=== PATIENT | female | born 2005 | race Caucasian/White ===

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

== ENCOUNTER 2024-02-25 13:43 | Outpatient (AMB) | payer OTHER, SELFPAY ==
--- NOTE | 2024-02-25 13:57 | AM.OFFWIN_ITS ---
Intake Vital Signs 02/25/24 13:59 Height 5 ft 9 in Weight 211 lb BMI 31.2 BP 112/80 Blood Pressure Location Lt brachial Position Sitting Pulse 94 Pulse Source Pulse Oximeter Temp 99.3 F Temp Source Oral Pulse Oximetry (%) 98 Oxygen Delivery Method Room Air Intake Visit Reasons: EP Dog bite Intake Note: Pt c/o dog bite. 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 L lateral thigh + 10/10 pain with palpation + 3 puncture wounds which were actively bleeding yesterday + bruised today Took OTC medicine for pain No fevers She is UTD with tetanus Pt washed area there after incident occured and applied a bandage [facility] Social History Household Members: Family Household Members Other:: mother Both parents involved: No Housing: Apartment Are you a primary career transition specialist to a significant other at home: No Do you presently have visiting nurse or other home services: No 75 years or older and lives alone: No Patient Tobacco Use Status: Current someday Tobacco user Female Reproductive History Menstrual Age of Menarche: 10 Review of Systems Const Denies chills and Denies fever(s) Musc Reports deformity, Reports radiating pain into limb (with certain movements L leg) and Denies tingling Skin/Breast Reports skin pain and Reports wounds Neuro Denies tingling Physical Exam Vital Signs: Last Vital Signs Temp 99.3 F 02/25/24 13:59 Pulse 94 02/25/24 13:59 BP 112/80 02/25/24 13:59 Pulse Ox 98 02/25/24 13:59 Oxygen Delivery Method Room Air 02/25/24 13:59 BMI result Body Mass Index 31.2 General: Non-toxic, NAD. Speaking full sentences. Skin: Warm dry throughout. L lateral mid thigh + 3 puncture wounds which are approximated and not open. + minimal erythema without warmth. No induration to palpation but + associated ecchymosis. + tender to palpation Eye: EOMI Respiratory: No respiratory distress MSK: Full ROM extremities. Neurology: A/O. No aphasia or facial droop. Gait without abnormality Psych: Good mood and affect Assessment & Plan Assessment & Plan (1) Dog bite of lower leg: Code(s): S81.859A - Open bite, unspecified lower leg, initial encounter; W54.0XXA - Bitten by dog, initial encounter Qualifiers: Encounter type: initial encounter Laterality: left Qualified Code(s): S81.852A - Open bite, left lower leg, initial encounter; W54.0XXA - Bitten by dog, initial encounter Plan: Patient seen and evaluated. Cold compress, ibuprofen/tylenol Can use heat if hematoma forms Augmentin F/U with PCP Patient gave verbal understanding and had no additional questions or concerns at time of discharge All questions answered Medications: New amoxicillin-pot clavulanate 875-125 mg 1 tab PO BID 14 tabs 0RF Coding Level of Care Code Est Pt Level 3 (56919) Diagnoses Dog bite of left lower leg, initial encounter S81.852A; W54.0XXA Encounter type: initial encounter Laterality: left
[2024-02-25 13:59] VITALS: BP 112/80; PULSE 94; TEMP 37.4; O2SAT 98; BMI 31.2
== END 2024-02-25 14:18 | disposition home or self-care (01) ==
PROVIDERS: PCP Pediatrics; Visit Provider Physician Assistant
DX: S81.852A Open bite, left lower leg, initial encounter (principal); W54.0XXA Bitten by dog, initial encounter
CPT/HCPCS: 99213

== ENCOUNTER 2025-05-20 11:03 | Outpatient (REF) | payer OTHER, SELFPAY ==
[2025-05-20 15:08] LABS: Bacterial Vaginosis PCR POSITIVE (Negative); Candida Group PCR DETECTED (Not Detect); Candida glab krusei PCR NOT DETECTED (Not Detect); Trichomonas vaginalis PCR NOT DETECTED (Not Detect)
[2025-05-20 15:39] LABS: CT PCR NOT DETECTED (Not Detect.); NG PCR NOT DETECTED (Not Detect.)
== END 2025-05-20 11:04 | disposition home or self-care (01) ==
LOC: HO.LNP 11:03
PROVIDERS: PCP Pediatrics; Visit Provider Advanced Practice Midwife
DX: Z30.09 Encounter for other general counseling and advice on contraception (principal); Z20.2 Contact with and (suspected) exposure to infections with a predominantly sexual mode of transmission; E66.812 Obesity, class 2; B37.31 Acute candidiasis of vulva and vagina; N89.8 Other specified noninflammatory disorders of vagina; Z97.5 Presence of (intrauterine) contraceptive device; Z87.42 Personal history of other diseases of the female genital tract; Z68.36 Body mass index [BMI] 36.0-36.9, adult
CPT/HCPCS: 81515; 87491; 87591

== ENCOUNTER 2025-05-20 11:03 | Outpatient (AMB) | payer OTHER, SELFPAY ==
--- NOTE | 2025-05-20 11:16 | A.OFFVIS_ITS ---
Vital Signs 05/20/25 11:20 Height 5 ft 9 in Weight 250 lb BMI 36.9 BP 118/70 Intake Visit Reasons: std testing Intake Note: Patient here for STD screen Surface Water Technician Required: No Information Interpreted: non-clinical & clinical Die Try Out Worker Stamping: Die Try Out Worker Stamping Present (Elen MARTINEZ) Accompanied by: Self / Same As Patient Allergies No Known Allergies Allergy (Verified 05/20/25 11:21) Medication List - Last Reconciled 05/20/25 by Delaney Schmidt CNM levonorgestrel (Kyleena) intrauterine Is last menstrual period known: Yes Last menstrual period: 04/28/25 HPI HPI std testing: Details: Patient is here for an STD check which was recommended because she had called with yeast symptoms however there was also ever reported greenish discharge so she agreed to come for STD screening to evaluate this just to be sure. She has a Kyleena IUD which I placed some years ago she had been on control she has a history of previous menstrual concerns and this turned out to be a very good solution for her. Most of the recent (last year and a half) episodes of yeast infection were related to use of antibiotics for strep throat dog bite and dental infections. She also self-treated for BV with boric acid on occasion as well. She lives with her mother and her mother buys the food and does the cooking. Money is tight so they do eat a lot of processed foods as they are often cheaper. Her circulation tender is Dr. Rae Balderas, but she admits she has not seen her in a while and now that she is 20 she has probably aging out of the pediatric population and needs to find a new care provider. She has always tended to be overweight and so much of this visit was spent discussing learning about nutrition and making healthier choices both to eventually lose weight and become healthier and also to have an awareness of sugar and carbs in ones diet and concerns about risk of diabetes as she is overweight. And also in connection to the recurrent yeast she has been doing some reading herself so different suggestions were made on how to make healthier choices going forward as she is now 20. Additionally extensive discussion about yeast treatment and prevention with cotton underwear air to vulva avoidance of sugar etc. occurred. [facility] Social History Household Members: Family Household Members Other:: mother Both parents involved: No Housing: Apartment Are you a primary director of medicare to a significant other at home: No Do you presently have visiting nurse or other home services: No 75 years or older and lives alone: No Patient Tobacco Use Status: Current someday Tobacco user Female Reproductive History Menstrual Age of Menarche: 10 Date of last menstrual period: 04/28/25 control method: progestin IUCD Physical Exam Vital Signs: Last Vital Signs BP 118/70 05/20/25 11:20 BMI result Body Mass Index 36.9 Other: External exam is within normal limits vagina is pink and moist with a uniform homogeneous whitish discharge which is somewhat clinging to the mucosal membrane consistent with bacterial vaginosis but which could have a yeast component as well her cervix is nulliparous pink smooth healthy appearing with Kyleena string easily visible. We will await testing results to determine treatment options full treatment options were discussed is part of the education done through this visit. Assessment & Plan Assessment & Plan (1) Presence of 13.5 mg levonorgestrel-releasing intrauterine device (IUD): Comment: Note patient actually has a Kyleena which has 19.5 mg levonorgestrel --which is not an option in system Code(s): Z97.5 - Presence of (intrauterine) contraceptive device Category: Social Hx (2) History of irregular menstrual bleeding: Code(s): Z87.42 - Personal history of other diseases of the female genital tract Category: Medical (3) Encounter for screening examination for sexually transmitted disease: Code(s): Z11.3 - Encounter for screening for infections with a predominantly sexual mode of transmission Category: Medical (4) Problematic vaginal discharge: Code(s): N89.8 - Other specified noninflammatory disorders of vagina Category: Medical (5) control counseling: Code(s): Z30.09 - Encounter for other general counseling and advice on contraception Category: Medical (6) Obesity, Class II, BMI 35-39.9: Code(s): E66.812 - Obesity, class 2 Category: Medical (7) Recurrent candidiasis of vagina: Comment: Recent occurrences in last year and a half mostly related to antibiotic use for strep throat and dental infections etc. extensive teaching done about diet sugar carbs weight risk of diabetes etc.. Patient will be looking for a new PCC as she ages out of pediatric care. Code(s): B37.31 - Acute candidiasis of vulva and vagina Category: Medical Plan Patient is here for an STD check which was recommended because she had called with yeast symptoms however there was also ever reported greenish discharge so she agreed to come for STD screening to evaluate this just to be sure. She has a Kyleena IUD which I placed some years ago she had been on control she has a history of previous menstrual concerns and this turned out to be a very good solution for her. Most of the recent (last year and a half) episodes of yeast infection were related to use of antibiotics for strep throat dog bite and dental infections. She also self-treated for BV with boric acid on occasion as well. She lives with her mother and her mother buys the food and does the cooking. Money is tight so they do eat a lot of processed foods as they are often cheaper. Her circulation tender is Dr. Rae Balderas but she admits she has not seen her in a while and now that she is 20 she has probably aging out of the pediatric population and needs to find a new care provider. She has always tended to be overweight and so much of this visit was spent discussing learning about nutrition and making healthier choices both to eventually lose weight and become healthier and also to have an awareness of sugar and carbs in ones diet and concerns about risk of diabetes as she is overweight. And also in connection to the recurrent yeast she has been doing some reading herself so different suggestions were made on how to make healthier choices going forward as she is now 20. Additionally extensive discussion about yeast treatment and prevention with cotton underwear air to vulva avoidance of sugar etc. occurred. Also the are hormonal shifts because of long-term use of control method though that also is serving her. Discussed scheduling her annual exam and 1st Pap smear and discussing who she may want for her primary care provider and choosing and scheduling. Orders: Orders Bacterial Vaginosis Panel Today Z11.3 - Encounter for screening for infections with a predominantly sexual mode of transmission CT NG by PCR Vag/Cerv Today Z11.3 - Encounter for screening for infections with a predominantly sexual mode of transmission Coding Level of Care Code Est Pt Level 3 (64767) Diagnoses Presence of 13.5 mg levonorgestrel-releasing intrauterine device (IUD) Z97.5 History of irregular menstrual bleeding Z87.42 Encounter for screening examination for sexually transmitted disease Z11.3 Problematic vaginal discharge N89.8 control counseling Z30.09 Obesity, Class II, BMI 35-39.9 E66.812 Recurrent candidiasis of vagina B37.31
[2025-05-20 11:20] VITALS: BP 118/70; BMI 36.9
== END 2025-05-20 12:34 | disposition home or self-care (01) ==
LOC: HO.HWS 11:03
PROVIDERS: PCP Pediatrics; Visit Provider Advanced Practice Midwife
DX: Z97.5 Presence of (intrauterine) contraceptive device (principal); Z87.42 Personal history of other diseases of the female genital tract; Z11.3 Encounter for screening for infections with a predominantly sexual mode of transmission; N89.8 Other specified noninflammatory disorders of vagina; Z30.09 Encounter for other general counseling and advice on contraception; E66.812 Obesity, class 2; B37.31 Acute candidiasis of vulva and vagina
CPT/HCPCS: 99213

== ENCOUNTER 2025-06-23 14:35 | Outpatient (REF) | payer OTHER, SELFPAY ==
[2025-06-24 00:47] LABS: Bacterial Vaginosis PCR POSITIVE (Negative); Candida Group PCR DETECTED (Not Detect); Candida glab krusei PCR NOT DETECTED (Not Detect); Trichomonas vaginalis PCR NOT DETECTED (Not Detect)
== END 2025-06-23 14:36 | disposition home or self-care (01) ==
LOC: HO.LNP 14:35
PROVIDERS: PCP Pediatrics; Visit Provider Advanced Practice Midwife
DX: N76.1 Subacute and chronic vaginitis (principal); Z32.02 Encounter for pregnancy test, result negative; Z20.2 Contact with and (suspected) exposure to infections with a predominantly sexual mode of transmission
CPT/HCPCS: 81025; 81515

== ENCOUNTER 2025-06-23 14:35 | Outpatient (AMB) | payer OTHER, SELFPAY ==
--- NOTE | 2025-06-23 14:38 | MHC.OFFVIS ---
Vital Signs 06/23/25 14:49 Height 5 ft 10 in Weight 217 lb BMI 31.1 BP 112/74 Blood Pressure Location Rt brachial Position Sitting Intake Visit Reasons: vaginal infection Intake Note: Recurring yeast infection after every treatment of antibiotics. Today having vaginal itching. Chrome Worker Required: No Information Interpreted: non-clinical & clinical Electronic Scanner Operator: Electronic Scanner Operator Present (Amelia) Accompanied by: Self / Same As Patient Allergies No Known Allergies Allergy (Verified 06/23/25 14:45) Medication List - Last Reconciled 06/23/25 by Stella Lyon LPN levonorgestrel (Kyleena) intrauterine Is last menstrual period known: Yes Last menstrual period: 05/28/25 Do you need a note to return to daycare/school/sports/work: No HPI Comments Details: Patient is here today with concerns that she has chronic yeast infections since being treated with multiple rounds of antibiotics. Recently tried Diflucan and had repeated doses. Currently has severe itching externally w/small cuts, and cottage cheese discharge. Kyleena IUD user. Last GC chlamydia 05/20/2025 were negative, patient declines any pelvic pain or risk exposure. She has felt irritated with a taut sensation and dryness after using some topical creams. [facility] Medical History Depression IUD (intrauterine device) in place Social History Household Members: Family Household Members Other:: mother Both parents involved: No Housing: Apartment Are you a primary director of medicare to a significant other at home: No Do you presently have visiting nurse or other home services: No 75 years or older and lives alone: No Patient Tobacco Use Status: Current someday Tobacco user Female Reproductive History Menstrual Age of Menarche: 10 Date of last menstrual period: 05/28/25 control method: progestin IUCD Review of Systems Const All systems reviewed & are unremarkable except as noted in HPI and below Physical Exam Vital Signs: Last Vital Signs BP 112/74 06/23/25 14:49 BMI result Body Mass Index 31.1 Const General: cooperative, healthy appearing and no acute distress Orientation/consciousness: patient oriented x3 GI Inspection: Yes normal to inspection Palpation (GI): Soft to palpation and Other GI palpation findings present (Nontender) Rectal Exam - Female: visual inspection normal General: Yes bladder normal to palpation External Female Exam: normal appearance of the urethra and erythema (No fissures, lesions or excoriations ) Speculum Exam - Vagina: normal appearance of the vagina, normal palpation and abnormal vaginal discharge (Curdy) white Speculum Exam - Cervix: normal appearance of the cervix and normal palpation Bimanual exam- vagina & uterus: normal bimanual exam, normal palpation, uterine size normal, bladder normal to palpation, normal palpation, uterine shape normal and non-tender Bimanual Exam- Adnexa, other: normal adnexae Neuro General: patient oriented x3 Results AMB Test Urine AMB Test Urine Negative Last Edit by Stella Lyon LPN on 06/23/25 14:56 Results Reviewed Results Reviewed: Laboratory Last Values Tst Clinic Negative 06/23/25 14:52 Assessment & Plan Assessment & Plan (1) Chronic vaginitis: Code(s): N76.1 - Subacute and chronic vaginitis Plan: Discussed the role of women's probiotics, gut biome, promotion of healthy diet, limiting sugar. Use of the Internet web page with descriptions of products available reviewed. The patient expressed understanding and agreement with the plan of care. All of her questions and concerns were addressed to the best of my ability. Plan Instructions: Clean with warm water, no soaps, scented products. Use a cool cloth to the area several times a day if swollen and/or uncomfortable. Complete all medications as prescribed. Await final pending results for any changes in the plan of care. Call the office if there is no improvement in 24-48hrs., or if worsening symptoms. The patient expressed understanding and agreement with the plan of care. All of her questions and concerns were addressed to the best of my ability. This note is constructed using voice recognition software. While every effort has been made to ensure accuracy, commercial escrow officer errors may have been included. Orders: Orders AMB HCG Urine Test Today Z32.02 - Encounter for test, result negative Bacterial Vaginosis Panel Today Z11.3 - Encounter for screening for infections with a predominantly sexual mode of transmission Medications: New clotrimazole-betamethasone 1-0.05 % apply externally a thin coat to the area 1 appl topical BID 45 grams 0RF itching 7 days Coding Level of Care Code Est Pt Level 3 (99286) Diagnoses Chronic vaginitis N76.1
[2025-06-23 14:49] VITALS: BP 112/74; BMI 31.1
--- OUTSIDE RECORDS SUMMARY | 2025-06-23 17:59 | XMS_ITS | Encounter Summary ---
Author Organization [facility] Address [address] [place] [address] Phone Care Team Providers Care Needle Setter Name Role Phone Unavailable Primary Care Provider Unavailabl e Encounter Details Date Type Department Care Team (Late st Contact Info) Description 03/19/2016 Documentation [facility] [place] Family [place] [facility] [place] [address] Family Medicine, Physician [place] [address] Social History Tobacco Use Types Packs/Day Years Used Date Smoking Tobacco: Never Assessed Comments Unknown Sex and Gender Information Value Date Recorded Sex Assigned at Not on file Legal Sex Female 5:10 PM EDT Gender Identity Not on file Sexual Orientation Not on file documented as of this encounter Plan of Treatment Not on file documented as of this encounter Visit Diagnoses Not on filedocumented in this encounter
--- OUTSIDE RECORDS SUMMARY | 2025-06-23 17:59 | XMS_ITS | Encounter Summary ---
Author Organization [facility] Address [address] [place] [address] Phone Care Team Providers Care Kai Whakaruruhau Name Role Phone Unavailable Primary Care Provider Unavailabl e Encounter Details Date Type Department Care Team (Late st Contact Info) Description 01/21/2014 Documentation [facility] [place] [facility] [place] [facility] [place] [address] Family Medicine, Physician [facility] [place] [address] Social History Tobacco Use Types Packs/Day Years [...]
--- OUTSIDE RECORDS SUMMARY | 2025-06-23 17:59 | XMS_ITS | Encounter Summary ---
Author Organization [facility] Address [address] [place] [address] Phone Care Team Providers Care Jail Officer Name Role Phone Unavailable Primary Care Provider Unavailabl e Encounter Details Date Type Department Care Team (Late st Contact Info) Description 02/03/2012 Documentation [facility] [place] Family Medicine [facility] [place] [address] Family Medicine, Physician [facility] [place] [address] Social History Tobacco Use Types Packs/Day Years [...]
--- OUTSIDE RECORDS SUMMARY | 2025-06-23 17:59 | XMS_ITS | Encounter Summary ---
Author Organization [facility] Address [address] [place] [address] Phone Care Team Providers Care Tie Worker Name Role Phone Unavailable Primary Care Provider Unavailabl e Encounter Details Date Type Department Care Team (Late st Contact Info) Description 07/13/2013 Documentation [facility] [place] Medicine [facility] [place] [address] Family Medicine, Physician [facility] [place] [address] Social History Tobacco Use Types Packs/Day Years [...]
--- OUTSIDE RECORDS SUMMARY | 2025-06-23 17:59 | XMS_ITS | Encounter Summary ---
Author Organization [facility] Address [address] [place] [address] Phone Care Team Providers Care Forest Science Professor Name Role Phone Unavailable Primary Care Provider Unavailabl e Encounter Details Date Type Department Care Team (Late st Contact Info) Description 08/15/2011 Documentation [facility] [place] [facility] [place] [address] Family Medicine, Physician [facility] [place] [address] Social History Tobacco Use Types Packs/Day Years [...]
--- OUTSIDE RECORDS SUMMARY | 2025-06-23 17:59 | XMS_ITS | Encounter Summary ---
Author Organization [facility] Address [address] [place] [address] Phone Care Team Providers Care Staff Assistant Name Role Phone Unavailable Primary Care Provider Unavailabl e Encounter Details Date Type Department Care Team (Late st Contact Info) Description 09/10/[address] [facility] [place] Family Medicine [facility] [place] [address] Family Medicine, Physician [facility] [place] [address] Social History Tobacco Use Types Packs/Day Years [...]
--- OUTSIDE RECORDS SUMMARY | 2025-06-23 17:59 | XMS_ITS | Encounter Summary ---
Author Organization [facility] Address [address] [place] [phone] Phone Care Team Providers Care Gravel Hauler Name Role Phone Unavailable Primary Care Provider Unavailabl e Encounter Details Date Type Department Care Team (Late st Contact Info) Description 05/24/2016 Documentation [facility] [place] [facility] [place] [address] Family Medicine, Physician [facility] [place] [address] Social History Tobacco Use Types Packs/Day Years [...]
--- OUTSIDE RECORDS SUMMARY | 2025-06-23 17:59 | XMS_ITS | Encounter Summary ---
Author Organization [facility] Address [address] [place] [address] Phone Care Team Providers Care Garment Liner Name Role Phone Unavailable Primary Care Provider Unavailabl e Encounter Details Date Type Department Care Team (Late st Contact Info) Description 12/29/[address] [facility] [place] [facility] [place] [address] Family Medicine, Physician [facility] [place] [address] Social History Tobacco Use Types Packs/Day Years [...]
--- OUTSIDE RECORDS SUMMARY | 2025-06-23 17:59 | XMS_ITS | Encounter Summary ---
Author Organization [facility] Address [address] [place] [address] Phone Care Team Providers Care Rubber Chemist Name Role Phone Unavailable Primary Care Provider Unavailabl e Encounter Details Date Type Department Care Team (Late st Contact Info) Description 03/30/2012 Documentation [facility] [place] [facility] [place] [address] Family Medicine, Physician [facility] [place] [address] Social History Tobacco Use Types Packs/Day Years [...]
--- OUTSIDE RECORDS SUMMARY | 2025-06-23 17:59 | XMS_ITS | Encounter Summary ---
Author Organization [facility] Address [address] [place] [address] Phone Care Team Providers Care Roundsman Name Role Phone Unavailable Primary Care Provider Unavailabl e Reason for Visit * Reason Comments Med Refill Encounter Details Date Type Department Care Team (Late st Contact Info) Description 12/15/2020 Refill [facility] [place] [address] [place] [address] Rae Balderas MD [address] [place] [address] Dysmenorrhea in adolescent Social History Tobacco Use Types Packs/Day Years Used Date Smoking Tobacco: Never Smokeless Tobacco: Never Alcohol Use Standard Drinks/Week Comments No 0 (1 standard drink = 0.6 oz pur e alcohol) Hunger/Food Answer Date Recorded In the last 12 months, did y ou or your family ever eat less than you felt you should because there wasn't enough money for food? No 10/04/2020 Stable Housing Answer Date Recorded Are you worried that in the next 2 months you may not have stable housing? No 10/04/2020 Transportation Concerns Answer Date Rec orded In the last 12 months, have you or your family ever had to go without healthcare because you didn't have a way to get there? No 10/04/2020 Hazards in Home Answer Date Recorded Think about the place you li ve. Do you have problems with any of the following? Pests (mice or roaches), mold, no/not working smoke detectors, water leaks, no window guards. No 2020 Financing Utilities Answer Date Recorde d In the last 12 months, has t he electric, gas, oil, or water company threatened to shut off your services in your home? No 10/04/2020 Safety at Home Answer Date Recorded Are you or your family worried about feeling saf e in your home? No 10/04/2020 Outside Support Answer Date Recorded Do you feel that you need mo re support from other people or programs to help you care for yourself or your family? No 10/04/2020 Understanding Health Concerns Answer Da te Recorded Do you need help understandi ng your or your child's healthcare needs (diagnosis, medications, plan, etc.)? No 10/04/2020 Financing Health Concerns Answer Date R ecorded In the last 12 months, was t here a time when your child needed to see a doctor or get medications or supplies but could not because of cost? No 10/04/2020 Missing School or Work Answer Date Ha rded Did you or your child miss s chool or work because of a health problem that could have been avoided? No 10/04/2020 Comments No Sex and Gender Information Value Date Recorded Sex Assigned at Not on file Legal Sex Female 5:10 PM EDT Gender Identity Not on file Sexual Orientation Not on file documented as of this encounter Miscellaneous Notes * Telephone Encounter - Amy Henson LPN - 12/15/2020 12:40 PM EDT Pharm fax refill request OCP. EH documented in this encounter Plan of Treatment Not on file documented as of this encounter Visit Diagnoses Diagnosis Dysmenorrhea in adolescent documented in this encounter
--- OUTSIDE RECORDS SUMMARY | 2025-06-23 17:59 | XMS_ITS | Encounter Summary ---
Author Organization [facility] Address [address] [place] [address] Phone Care Team Providers Care Credit Control Clerk Name Role Phone Unavailable Primary Care Provider Unavailabl e Encounter Details Date Type Department Care Team (Late st Contact Info) Description 05/21/2013 Documentation [facility] [place] [facility] [place] [address] Family Medicine, Physician [facility] [place] [address] Social History Tobacco Use Types Packs/Day Years [...]
--- OUTSIDE RECORDS SUMMARY | 2025-06-23 17:59 | XMS_ITS | Encounter Summary ---
Author Organization [facility] Address [address] [place] [address] Phone Care Team Providers Care Business Unit Manager Name Role Phone Unavailable Primary Care Provider Unavailabl e Encounter Details Date Type Department Care Team (Late st Contact Info) Description 05/24/2016 Documentation [facility] [place] [facility] [place] [address] Family Medicine, Physician [facility] [address] Social History Tobacco Use Types Packs/Day Years [...]
--- OUTSIDE RECORDS SUMMARY | 2025-06-23 17:59 | XMS_ITS | Encounter Summary ---
Author Organization [facility] Address [address] [place] [address] Phone Care Team Providers Care Adult And Pediatric Neurologist Name Role Phone Unavailable Primary Care Provider Unavailabl e Encounter Details Date Type Department Care Team (Late st Contact Info) Description 03/14/2016 Documentation [facility] [place] Family Medicine [facility] [address] Family Medicine, Physician [facility] [address] Social History Tobacco Use Types Packs/Day Years [...]
--- OUTSIDE RECORDS SUMMARY | 2025-06-23 17:59 | XMS_ITS | Encounter Summary ---
Author Organization [facility] Address [address] [place] [phone] Phone Care Team Providers Care Drop Worker Name Role Phone Unavailable Primary Care Provider Unavailabl e Encounter Details Date Type Department Care Team (Late st Contact Info) Description 03/30/2012 Documentation [facility] [place] [facility] [place] [address] Family Medicine, Physician [facility] [place] [address] Social History Tobacco Use Types Packs/Day Years [...]
--- OUTSIDE RECORDS SUMMARY | 2025-06-23 17:59 | XMS_ITS | Encounter Summary ---
Author Organization [facility] Address [address] [place] [address] Phone Care Team Providers Care Funeral Home Director Name Role Phone Unavailable Primary Care Provider Unavailabl e Encounter Details Date Type Department Care Team (Late st Contact Info) Description 03/19/2016 Documentation [facility] [place] [address] Family Medicine, [place] [address] Social History Tobacco Use Types Packs/Day Years [...]
--- OUTSIDE RECORDS SUMMARY | 2025-06-23 17:59 | XMS_ITS | Encounter Summary ---
Author Organization [facility] Address [address] [place] [phone] Phone Care Team Providers Care Liver Trimmer Name Role Phone Unavailable Primary Care Provider Unavailabl e Encounter Details Date Type Department Care Team (Late st Contact Info) Description 03/24/2017 Documentation [facility] [place] [facility] [place] [address] Family Medicine, Physician [facility] [place] [address] Social History Tobacco Use Types Packs/Day Years [...]
--- OUTSIDE RECORDS SUMMARY | 2025-06-23 17:59 | XMS_ITS | Encounter Summary ---
Author Organization [facility] Address [address] [place] [phone] Phone Care Team Providers Care Head Of Stock Name Role Phone Unavailable Primary Care Provider Unavailabl e Encounter Details Date Type Department Care Team (Late st Contact Info) Description 03/27/2017 Conversion Encounter [facility] - [address] [address] Social History Tobacco Use Types Packs/Day Years [...]
--- OUTSIDE RECORDS SUMMARY | 2025-06-23 17:59 | XMS_ITS | Encounter Summary ---
Author Organization [facility] Address [address] [place] [phone] Phone Care Team Providers Care Payroll Examiner Name Role Phone Unavailable Primary Care Provider Unavailabl e Encounter Details Date Type Department Care Team (Late st Contact Info) Description 05/21/2013 Documentation [facility] [place] [facility] [place] [address] Family Medicine, Physician [facility] [place] [address] Social History Tobacco Use Types Packs/Day Years [...]
--- OUTSIDE RECORDS SUMMARY | 2025-06-23 17:59 | XMS_ITS | Encounter Summary ---
Author Organization [facility] Address [address] [place] [phone] Phone Care Team Providers Care Director Of Rehabilitation Name Role Phone Unavailable Primary Care Provider Unavailabl e Encounter Details Date Type Department Care Team (Late st Contact Info) Description 01/10/2016 Documentation [facility] [place] [facility] [place] [address] Family Medicine, Physician [facility] [place] [address] Social History Tobacco Use Types Packs/Day Years [...]
--- OUTSIDE RECORDS SUMMARY | 2025-06-23 17:59 | XMS_ITS | Encounter Summary ---
Author Organization [facility] Address [address] [place] [address] Phone Care Team Providers Care Adhesion Tester Name Role Phone Unavailable Primary Care Provider Unavailabl e Encounter Details Date Type Department Care Team (Late st Contact Info) Description 03/24/2017 Documentation [facility] [place] [facility] [place] [address] Family Medicine, Physician [facility] [place] [address] Social History Tobacco Use Types Packs/Day Years [...]
--- OUTSIDE RECORDS SUMMARY | 2025-06-23 17:59 | XMS_ITS | Encounter Summary ---
Author Organization [facility] Address [address] [place] [address] Phone Care Team Providers Care Grade School Teacher Name Role Phone Unavailable Primary Care Provider Unavailabl e Encounter Details Date Type Department Care Team (Late st Contact Info) Description 03/24/2017 Documentation [facility] [place] [facility] [place] [address] Family Medicine, Physician [facility] [place] [address] Social History Tobacco Use Types Packs/Day Years [...]
--- OUTSIDE RECORDS SUMMARY | 2025-06-23 18:00 | XMS_ITS | Encounter Summary ---
Author Organization [facility] Address [address] [place] [address] Phone Care Team Providers Care Central Control Room Operator Name Role Phone Unavailable Primary Care Provider Unavailabl e Encounter Details Date Type Department Care Team (Late st Contact Info) Description 03/14/2015 Documentation [facility] [place] [facility] [place] [address] Family Medicine, Physician [facility] [place] [address] Social History Tobacco Use Types Packs/Day Years [...]
--- OUTSIDE RECORDS SUMMARY | 2025-06-23 18:00 | XMS_ITS | Encounter Summary ---
Author Organization [facility] Address [address] [place] [phone] Phone Care Team Providers Care Route Sales Specialist Name Role Phone Unavailable Primary Care Provider Unavailabl e Encounter Details Date Type Department Care Team (Late st Contact Info) Description 03/14/[address] [facility] [place] [facility] [place] [address] Family Medicine, Physician [facility] [place] [address] Social History Tobacco Use Types Packs/Day Years [...]
--- OUTSIDE RECORDS SUMMARY | 2025-06-23 18:00 | XMS_ITS | Clinical Summary ---
Author Organization [facility] Address [address] [place] [phone] Phone Care Team Providers Care Reporting Manager Name Role Phone Unavailable Primary Care Provider Unavailabl e Allergies No known active allergies Medications Kariva 0.15-0.02/0.01 MG (29/12) per tablet Take 1 tablet by mouth once daily. 12/02/2022 Active Active Problems Problem Noted Date Diagnosed Date Adolescent depression 10/04/2020 Overview (10/04/2020): 09/2020: Was seeing therapist & Marah Castillo at [facility] in 2019 - tried Escitalipram 5 mg for a number of months but did not like so stopped. Just connected with new therapist 08/2020. No meds Assessment & Plan (10/04/2020 9:19 AM EST): Seeing new therapist weekly for past month - working on some mild depression & some disordered eating No meds & Cheri is not interested in medication at this time Immunizations Immunization Administration Dates Next Due DTaP / Hep B / IPV 2004,2004, 004 DTaP 5 07/21/2008,10/15/2005 H1N1 07/31/2009 HPV Vaccine 9 Valent 04/06/2018,05/23/2016,03/18 Hep A, ped/adol 03/18/2016,03/13/2015 Hep B, ped/adol 2004 Hib (HbOC) 07/01/2005, 5,2004,06/26 IPV 07/21/2008 Influenza, injectable, quadr ivalent, preservative free 10/04/2020,10/16/2017 Influenza, injectable, trivalent 07/31/2009,06/12 Influenza, intranasal, quadrivalent 05/20/2013 MMR 07/21/2008,03/14/2005 Meningococcal Conj (Menactra) MCV4P 10/04/2020,0 03/18/2016 Pneumococcal Conjugate 07/01/2005,2004,2004,06/26 Tdap 03/18/2016 Varicella 07/21/2008,03/14/2005 Family History Medical History Relation Name Comments Heart attack Maternal Grandfather No Known Problems Maternal Grandmother No Known Problems Mother minh austin No Known Problems Paternal Grandfather No Known Problems Paternal Grandmother Relation Name Status Comments Father Antonio Alive Maternal Grandfather Alive Maternal Grandmother Alive Mother minh austin Alive Paternal Grandfather Alive Paternal Grandmother Alive Social History Tobacco Use Types Packs/Day Years [...] on file Sexual Orientation Not on file Last Filed Vital Signs Vital Sign Reading Time Taken Comments Blood Pressure 138/81 12/18/2022 4:11 PM EDT Pulse 105 12/18/2022 4:11 PM EDT Temperature 36.6 C (97.8 F) 12/18/2022 4:11 PM EDT Respiratory Rate - - Oxygen Saturation - - Inhaled Oxygen Concentration - - Weight 105 kg (230 lb 8 oz) 12/18/2022 4:11 PM E DT Height 173.5 cm (5' 8.31 ) 10/04/2020 8:42 AM ES T Body Mass Index - - Plan of Treatment Health Maintenance Due Date Last Done Comments Men B Vaccine (1 of 2 - Standard) 2020 Influenza Vaccines (#1) 2025 05/17/20, 10/04/2020, 10/16/2017, Additional history exists COVID-19 Vaccine (6 - 2024-2 6 season) 2025 05/17/2023, 05/17/2022, 08/10/2021, Additional history exists DTaP,Tdap,and Td Vaccines (7 - Td or Tdap) 03/18/2026 03/18/2016, 07/21/2008, 10/15/2005, Additional history exists Hepatitis B Vaccines Completed 2004, 2004, 2004, Additional history exists HIB Vaccines Completed 07/01/2005, 12/09, 2004, Additional history exists Pneumococcal Vaccine Completed 07/01/2005, 2004, 2004, Additional history exists IPV Vaccines Completed 07/21/2008, 12/09, 2004, Additional history exists MMR Vaccines Completed 07/21/2008, 03/14/2005 Varicella Vaccines Completed 07/21/2008, 03/14/2005 Hepatitis A Vaccines Completed 03/18/2016, 03/13/20 15 HPV Vaccines Completed 04/06/2018, 05/11, 03/18/2016 Meningococcal Vaccine Completed 10/04/2020, 016 Procedures * Due to [place] law, this organization might not be sharing sensitive test results. Procedure Name Priority Date/Time Associated Diagnosis Comments CHLAMYDIA AND GONORRHEA, AMPLIFIED Routine 03/24/2019 4:02 PM EDT Screening examination for bacterial and spirochetal disease from Last 3 Months or Most Recently Relevant to Health Maintenance Results * Due to [place] law, this organization might not be sharing sensitive test results. * Chlamydia and Gonorrhea, Amplified (03/24/2019 4:02 PM EDT) Chlamydia Trachomatis, DNA Probe NEGATIVE (NEG) [facility] Comment: No Chlamydia Trachomatis RNA detected in this patient's sample (REFERENCE RANGE/NORMAL VALUE: NOT DETECTED) Note: This test uses library clerk talking books- mediated amplification method to detect rRNA from C. Trachomatis URINE GC AMP PROBE NEGATIVE (NEG) [facility] Comment: No Neisseria Gonorrhoeae RNA detected in this patient's sample (REFERENCE RANGE/NORMAL VALUE: NOT DETECTED) NOTE: This test uses library clerk talking books-mediated amplification method to detect rRNA from N.Gonorrhoeae. A negative result does not preclude infection. In the case of a negative urine result, testing of an endocervical(female) or urethral (male) specimen is recommended if there is high clinical suspicion of infection. Due to very high sensitivity of Nucleic Acid Amplification Test, false positive results may occur. Therefore, specimen handling is extremely important. In patients in whom the disease is unlikely, additional sample for testing should be considered after an initial positive result. The performance characteristics of this test have not been evaluated in children. The Aptima Combo2 assay is not intended for the evaluation of suspected sexual abuse or for other medico-legal indications. The ordering provider should assess if the patient had consensual sex without risk of sexual abuse. Consult the [facility] if needed. Contact phone number . Therapeutic failure or success cannot be determined with the Aptima Combo2 assay since nucleic acid may persist following appropriate antimicrobial therapy. The Centers for Disease Control and Prevention (CDC) recommends confirmatory retesting using culture or a different nucleic acid amplification test when positive results occur, if indicated. Testing performed or reported by [facility], a Service of [facility], [address] [place] [address] Urine 03/24/2019 4:02 PM EDT 03/24/2019 9:14 PM EDT us Rae Balderas MD LAB MICROBIOLOGY - GENERAL ORDER EDITH Final Result [facility] from Last 3 Months or Most Recently Relevant to Health Maintenance Insurance [facility] NON PCC [facility]
== END 2025-06-23 15:40 | disposition home or self-care (01) ==
LOC: HO.HWS 14:36
PROVIDERS: PCP Pediatrics; Visit Provider Advanced Practice Midwife
DX: N76.1 Subacute and chronic vaginitis (principal); Z32.02 Encounter for pregnancy test, result negative
CPT/HCPCS: 99213